=== PATIENT | male | born 1965 | race Caucasian/White ===

== ENCOUNTER 2017-04-12 17:31 | Emergency (ER) | payer MEDICARE, OTHER ==
--- NOTE | ~2017-04-12 | CR141 ---
[facility] A Service of [facility] RADIOLOGY TEXT RESULTS PATIENT: GOLDY HANKINS LOCATION: SED : 65 UNIT #: [id number] AGE: [address]: Soraya Nuñez SEX: M ORDER DR: [id number] [address] [address] [id number] MR#: [id number] Acc #: [id number] NAME: GOLDY HANKINS. : 1965 SEX: M STUDY DATE/TIME: 04/12/2017 17:52 UNIT: SED ROOM: STUDY DESCRIPTION: CR Hand Min 3 Views Lt Attending Physician: Soraya Nuñez Pa-C Ordering Physician: Kareem Ramirez Primary Care Physician: Primary Care Physician No MEDICAL IMAGING REPORT This report is preliminary unless electronic signature is present. EXAM Left hand 3 views, 04/12/2017 HISTORY Left hand pain, smashed hand between bookshelves and a wall 1 hour ago. FINDINGS 3 views of the left hand demonstrate no acute fracture. There is an old healed fracture deformity involving the head of the fifth metacarpal. Old ununited fracture of the ulnar styloid process is noted. There is soft tissue swelling about the left hand. No foreign body is seen. IMPRESSION 1. No acute fracture. 2. Old healed fracture deformity involving the head of the fifth metacarpal. Old ununited fracture of the ulnar styloid process. 3. Soft tissue swelling about the left hand. No foreign body is seen. Dictated by... Doug Mabry M.D. THIS IS AN ELECTRONICALLY VERIFIED REPORT Doug Mabry M.D. at 04/13/2017 2:19 PM KRT/chandrakant TD: 04/12/2017 23:46 JOB #: [id number] MEDICAL IMAGING REPORT [facility] A Service of [facility] RADIOLOGY TEXT RESULTS PATIENT: GOLDY HANKINS LOCATION: SED : 65 UNIT #: [id number] AGE: [address]: Soraya Nuñez SEX: M ORDER DR: Page 1 of 1
[~2017-04-12 17:31] MED LIST: ALTACE; ASPIRIN81 M2; FLEXERIL10 MG PO; GABAPENTIN300 MG PO; ISORDIL10 MG PO; ISOSORBIDE1 GM; LASIX; LIPITOR; PREVACID; ROPINIROLE HCL2 MG; TOPROL XL; VICODIN 5-3001 EACH PO; VOLTAREN PO
== END 2017-04-12 19:00 | disposition home or self-care (01) ==
LOC: SED 17:31
DX: S60.222A Contusion of left hand, initial encounter (principal); F17.210 Nicotine dependence, cigarettes, uncomplicated; W23.0XXA Caught, crushed, jammed, or pinched between moving objects, initial encounter; Y92.009 Unspecified place in unspecified non-institutional (private) residence as the place of occurrence of the external cause
CPT/HCPCS: 29280; 73130; 99283